=== PATIENT | female | born 1960 | race Caucasian/White ===

== ENCOUNTER 2018-03-28 07:06 | Day surgery (SDC) | payer BC ==
[2018-03-26 14:02] VITALS: BMI 27.5
[~2018-03-28 07:06] MED LIST: Famotidine/PF 20 mg/2ml Vial ONE; Fentanyl 100 MCG/2 ML VIAL ONE
[2018-03-28] MEDS ORDERED: CEFAZOLIN 2 GM/50 ML BAG ONE (07:38)
[2018-03-28] MEDS ORDERED: Bupivacaine/Epinephrine 0.25% 30 ML VIAL ONE (07:39)
[2018-03-28] MEDS ORDERED: Iothalamate Meglumine 60% 50 ML VIAL FS ONE (07:41)
[2018-03-28] MEDS ORDERED: Midazolam HCl 2 mg/2 ml Vial ONE (07:58)
[2018-03-28] MEDS ORDERED: Fentanyl 100 MCG/2 ML VIAL ONE (10:09)
--- NOTE | 2018-03-28 11:04 | RAD ---
CHOLANGIOGRAM IN SURGERY: Comparison: None. History: Cholelithiasis. FINDINGS/IMPRESSION: Multiple limited intraoperative fluoroscopic views from a cholangiogram in surgery were submitted for interpretation. Contrast was seen within the common bile duct, cystic duct, and intrahepatic biliary tree as well the duodenum. The initial images shows no obvious filling defect but a prominent common bile duct. Free spillage is seen into the duodenum on the second image. The third image shows no con trast in the mid portion of the common bile duct, but this does not appear to have the appearance of a calcification. POS: EAMON
[2018-03-28] MEDS ORDERED: HYDROcodone/Acetaminophen 5/325 mg Tablet ONE (12:10)
[2018-03-28] MEDS ORDERED: PROPOFOL 200 MG/20 ML VIAL ONE (17:35)
[2018-03-28] MEDS ORDERED: Ketorolac Tromethamine 30 MG/ML VIAL ONE (17:35)
[2018-03-28] MEDS ORDERED: Lidocaine 1% PF 5 ML VIAL ONE (17:35)
[2018-03-28] MEDS ORDERED: Labetalol HCl 100 MG/20 ML VIAL ONE (17:35)
[2018-03-28] MEDS ORDERED: Dexamethasone 20 MG/5 ML VIAL ONE (17:35)
[2018-03-28] MEDS ORDERED: Ondansetron PF 4 MG/2 ML Vial ONE (17:35)
[2018-03-28] MEDS ORDERED: Glycopyrrolate 0.2 MG/ML 5 ML SYRINGE ONE (17:35)
--- NOTE | 2018-03-30 17:41 | PDOC.OP ---
Operative Note - Operative Note Operative Note: PROCEDURE: Laparoscopic cholecystectomy with intraoperative cholangiogram SURGEON: Tori Velasquez M.D. DATE OF PROCEDURE: 03/28/2018 PREOPERATIVE DIAGNOSIS: Cholelithiasis and cholecystitis, possible choledocholithiasis: POSTOPERATIVE DIAGNOSIS: Cholelithiasis and cholecystitis HISTORY: Patient recently diagnosed with cholelithiasis. Laparoscopic cholecystectomy was recommended, with cholangiogram due to mildly elevated LFTs and transiently elevated lipase. FINDINGS: Stone in cystic duct extruded. Possible lucency and distal common bile duct on initial cholangiogram but no lucency seen on repeat cholangiogram after glucagon and flushing. PROCEDURE IN DETAIL: After informed consent was obtained and appropriate preoperative antibiotics were administered, the patient was taken to the operating room and placed in the supine position and general endotracheal anesthesia was administered. The stomach was decompressed with an OG tube and the abdomen was prepped and draped in standard sterile fashion. Local anesthesia was infused to the skin and subcutaneous tissues at the umbilical level. A transverse skin incision was made. The fascia was elevated and a Veress needle was placed into the abdominal cavity without difficulty. Opening pressure was less than 5 and carbon dioxide gas easily insufflated to an intra- abdominal pressure of 15, which the patient tolerated well. The Veress needle was withdrawn and a [employer] port advanced under direct vision. The abdominal cavity was carefully examined. There was no evidence of Veress needle or of trocar injury. Local anesthesia was infused to the skin and subcutaneous tissues at the epigastric, right upper quadrant, and right lateral abdominal sites and trocars were placed under direct vision of the laparoscope. The fundus of the gallbladder was grasped and retracted superiorly. The infundibulum was grasped and retracted laterally. The serosa was stripped inferiorly at the level of the neck of the gallbladder exposing the cystic duct and artery which were traced clearly to their insertion in the gallbladder. These were dissected free circumferentially and the cystic duct was clipped at the level of the neck of the gallbladder. The cystic artery was clipped but not divided. An incision was made in the cystic duct inferior to the clip and the cystic duct was palpated with one small stone extruded from the cystic duct. Clear bile was seen to flow from the cystic duct incision. A cholangiogram catheter was introduced and placed into the cystic duct and secured with a clip. A cholangiogram was obtained which showed an adequate length of cystic duct. There was normal filling of the common bile duct with free flow of contrast into the duodenum but a possible lucency in the distal common bile duct. There was normal retrograde flow into the common hepatic duct beyond the level of the bifurcation without filling defects. Glucagon was administered by Dr. was flushed. A repeat cholangiogram was taken with careful attention paid to the distal common bile duct and no residual lucency was seen. The cholangiogram catheter was removed and the cystic duct clipped below the incision in the cystic duct. The cystic duct was divided between these clips and the previously placed clip. The cystic artery was clipped and divided between the previously placed clips. The gallbladder was then dissected free of the gallbladder bed using hook electrocautery. Prior to complete removal of the gallbladder from the gallbladder bed, the area of the cystic duct and artery stumps was examined. The clips were in good position completely across these structures and there was no bleeding and no leakage of bile. The gallbladder was then placed into an EndoCatch bag and drawn out through the epigastric incision. The epigastric trocar was replaced and the operative site easily irrigated to clear. There was no significant bleeding or spillage of bile. The epigastric trocar was removed and the fascia closed under direct laparoscopic vision with a 0 Vicryl suture on a GraNee needle in a figure-of- eight manner with excellent technical result. The right upper quadrant and right lateral abdominal trocars were removed and hemostasis verified. Carbon dioxide gas was allowed to desufflate through the umbilical trocar which was then removed. The skin incisions were closed with 4-0 subcuticular Monocryl sutures and Dermabond dressings were placed. The patient was extubated and taken to the recovery room in good condition. There were no complications. ESTIMATED BLOOD LOSS: Minimal. SPECIMEN : Gallbladder and contents.
== END 2018-03-28 12:38 | disposition home or self-care (01) ==
LOC: SDC 07:06
PROVIDERS: ATTEND Surgery
PROC: 0FT44ZZ Resection of Gallbladder, Percutaneous Endoscopic Approach (ICD-10-PCS; principal; 2018-03-28)
PROC: BF121ZZ Fluoroscopy of Gallbladder using Low Osmolar Contrast (ICD-10-PCS; principal; 2018-03-28)
DX: K80.10 Calculus of gallbladder with chronic cholecystitis without obstruction (principal); E11.9 Type 2 diabetes mellitus without complications; Z88.6 Allergy status to analgesic agent; Z79.899 Other long term (current) drug therapy; Z87.891 Personal history of nicotine dependence
CPT/HCPCS: 47532; 88304; 96374; J0131; J1100; J1610; J1885; J2001; J2250; J2405; J2704; J3010; Q9961; S0028

== ENCOUNTER 2018-03-31 17:31 | Observation (INO) | payer BC ==
[2018-03-31 18:07] LABS: #Basophils 0.1 thou/uL (0.0-0.2); #Lymphocytes 4.2 thou/uL (1.20-3.40); #Monocytes 0.8 thou/uL (0.11-0.59); #Neutrophils 6.1 thou/uL (1.40-6.50); %Basophils 0.7 % (0.0-1.0); %Eosinophils 0.2 % (0.0-10.0); %Lymphocytes 37.3 % (21.0-51.0); %Monocytes 7.3 % (0.0-10.0); %Neutrophils 54.5 % (42.0-75.0); Hemoglobin 14.8 g/dL (12.0-16.0); Mean Corpuscular HGB CONC 32.1 g/dL (32.0-36.0); Mean Corpuscular Hemoglobin 29.9 pg (27.0-31.0); Mean Platelet Volume 6.8 fL (7.4-10.4); Platelet Count 316 thou/uL (130-400); RBC Distribution Width 12.1 % (11.5-14.5); Red Blood Cell (RBC) Count 4.96 mill/uL (4.20-5.40); White Blood Cell (WBC) Count 11.2 thou/uL (4.8-10.8)
[2018-03-31] MEDS ORDERED: Morphine 4 MG/ML VIAL ONE ×2 (18:10→20:45)
[2018-03-31] MEDS ORDERED: Ondansetron PF 4 MG/2 ML Vial ONE (18:10)
[2018-03-31 18:30] LABS: ALT (SGPT) 156 U/L (8-55); AST (SGOT) 41 U/L (5-34); Albumin 4.2 g/dL (3.5-5.0); Alkaline Phosphatase 130 U/L (40-150); Anion Gap 16 mmol/L (10-20); BUN (Urea Nitrogen) 22 mg/dL (9.8-20.1); Bilirubin, Total 0.5 mg/dL (0.2-1.2); Calc. Creatinine Clearance 0 mL/min (70-130); Carbon Dioxide 30 mmol/L (22-29); Chloride 98 mmol/L (98-107); Estimated GFR-MDRD 60; Globulin 3.3 g/dL (2.4-3.5); Glucose 142 mg/dL (70-105); Lipase 68 U/L (8-78); Potassium 4.1 mmol/L (3.5-5.1); Protein, Total 7.5 g/dL (6.0-8.3); Sodium 140 mmol/L (136-145)
[2018-03-31 19:24] LABS: Bilirubin Negative (Negative); Blood, Urine Negative (Negative); Clarity CLOUDY (Clear); Glucose, Urine (Dipstick) Negative (Negative); Leukocyte Negative (Negative); Nitrite Negative (Negative); Protein, Urine (Dipstick) Negative (Neg-Trace); Specific Gravity, Urine 1.014 (1.002-1.036); Urobilinogen 0.2 mg/dL (0.2-1.0)
--- NOTE | 2018-03-31 20:34 | ULT ---
RIGHT UPPER QUADRANT ULTRASOUND: 03/31/18 HISTORY: Abdominal pain, status post cholecystectomy. Multiple longitudinal and transverse images of the right upper quadrant of the abdomen is obtained us ing a multihertz curvilinear transducer. Real time images are obtained. The liver is unremarkable. No evidence of hepatic parenchymal lesions seen. The common bile duct is a bnormally dilated measuring approximately 1.1 cm. This may represent common bile dilatation. Consider the patient's recent cholecystectomy, I am concerned about obstructing common bile duct. The gallbladder is not visualized. No evidence of intrahepatic biliary dilatation is seen. No significant amount of free intraperitoneal fluid seen. The visualized portions of the pancreas is unremarkable. The right kidney is unremarkable with no evidence of masses or lesions. IMPRESSION: Abnormally dilated common bile duct. Common bile duct obstruction cannot be excluded. POS: EAMON
[2018-03-31] MEDS: Dextrose 5 % And 0.9 % NaCl 1,000 ML IV SCH (22:41)
[2018-03-31] MEDS: Morphine 2 MG/ML SYRINGE SLOW IVP PRN (22:47)
[2018-04-01] MEDS: Morphine 2 MG/ML SYRINGE SLOW IVP PRN ×4 (00:33→07:22)
[2018-04-01] MEDS: Dextrose 5 % And 0.9 % NaCl 1,000 ML IV SCH (07:48)
[2018-04-01] MEDS ORDERED: Morphine 2 MG/ML SYRINGE SLOW IVP PRN ×2 (11:23→12:15)
--- NOTE | 2018-04-01 13:04 | NM ---
HEPATOBILIARY SCAN: HISTORY: Status post cholecystectomy on 03/28/2018. Right upper quadrant abdominal pain. RADIOPHARMACEUTICAL: 5.5 mCi Technetium 99m-mebrofenin is injected intravenously. FINDINGS: There is good tracer extraction of the liver with prompt excretion into the biliary tract and small b owel loops. No tracer extravasation is seen on the initial or 2-hour delayed images. IMPRESSION: No evidence of biliary obstruction or leak. POS: EAMON
--- NOTE | 2018-04-01 19:35 | CON ---
GI INPATIENT CONSULTATION NOTE DATE OF CONSULTATION: 04/01/2018 REQUESTING PHYSICIAN: Randolph Arora M.D. REASON FOR CONSULTATION: Choledocholithiasis. HISTORY OF PRESENT ILLNESS: Joseluis Castillo is a very pleasant 57-year-old woman who underwent laparosc opic cholecystectomy 5 days ago on March 28, 2018. The procedure went well. Intraoperative cholan giogram was performed at that time which was initially positive but after flushing out the bile duct, it was felt that any remaining stones probably passed. The patient did well after the procedure and went home essentially asymptomatic. Her incisions are healing well; however, yesterday she had a ramirez dden onset of epigastric pain and nausea which is very similar to the pains that she had been having in the past. She presented to the emergency department and again was found to have some mild elevati on in transaminases and an abdominal ultrasound demonstrated her common bile duct is dilated to 1.1 c m. She did have a HIDA scan which was negative, though this is not the most sensitive for small bile duct stones. Her pain level right now is about a constant 4/10. It has improved with morphine. 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 OUTPATIENT MEDICATIONS: Cyclosporine, amitriptyline, Protonix once daily, prednisone. ALLERGIES: ASPIRIN. SOCIAL HISTORY: Social alcohol use. She is a former smoker. FAMILY HISTORY: Noncontributory. PHYSICAL EXAMINATION: VITAL SIGNS: Temperature 98.9, pulse 89, blood pressure 114/75, 97% oxygen saturation on room air. GENERAL: No acute distress. HEART: Regular rate and rhythm. LUNGS: Clear to auscultation bilaterally. ABDOMEN: Bowel sounds are present but hypoactive, soft, some tenderness to palpation in the epigastr ium. No guarding or rebound tenderness. Incisions are healing well. EXTREMITIES: No peripheral edema. VESSELS: Radial pulses 2+ bilaterally. NEUROLOGICAL: Cranial nerves II-XII intact bilaterally. No focal deficits. SKIN: No jaundice, no rashes were palpable. EYES: No scleral icterus. Extraocular movements intact. ENT: Mucous membranes moist, no oral lesions. LYMPH: No submandibular, supraclavicular lymphadenopathy. THYROID: Nontender to palpation. LABORATORY STUDIES: WBC 11.2, hemoglobin 14.8, platelets 316. Sodium 140, potassium 4.1, BUN 22, cr eatinine 0.96. Lactic acid 1.7, calcium 10.0, alkaline phosphatase 130, AST 41, ALT 156, total bilir ubin 0.5, lipase 68. IMAGING STUDIES: Abdominal ultrasound shows normal appearing liver, absent gallbladder, but common b ile duct dilated to 1.1 cm. HIDA scan is negative. ASSESSMENT AND PLAN: 1. Upper abdominal pain. 2. Biliary dilation. 3. Probable choledocholithiasis. The patient has common bile duct dilation to a degree that is grea ter than expected for having had such a recent cholecystectomy. Combining this with the continued mi ld increase in transaminases and initially positive IOC on her recent cholecystectomy, I have a high suspicion for choledocholithiasis. We will plan for ERCP tomorrow with likely biliary sphincterotomy and stone extraction. I discussed this at length with the patient. We discussed the potential risk s of the procedure including post-ERCP pancreatitis, and she desires to proceed. Further recommendations following ERCP tomorrow morning. Thank you for the consultation. Please call any time with questions or concerns.
[2018-04-01] MEDS: Acetaminophen 1,000 MG in Premix Bag 1 BAG IVPB PRN (21:00)
[2018-04-02] MEDS: Acetaminophen 1,000 MG in Premix Bag 1 BAG IVPB PRN ×2 (03:01→16:56)
--- NOTE | 2018-04-02 07:18 | HP ---
CHIEF COMPLAINT: Severe epigastric pain. HISTORY OF PRESENT ILLNESS: This is a 57-year-old female who underwent a laparoscopic cholecystectom y 4 days ago with intraoperative cholangiogram. Postoperatively, she did well and was discharged unt il last night, had sudden onset of same epigastric pain consistent like her gallbladder pain associat ed with nausea and vomiting. PAST MEDICAL HISTORY: Significant for anxiety, depression, arthritis, hyperlipidemia, depression, di abetes mellitus, and esophageal reflux. PAST SURGICAL HISTORY: Shoulder surgery in 1987. She has had a knee arthroscopy, she has had sleeve gastrectomy in [address] Song and cervical fusion. MEDICATIONS: Amitriptyline, Protonix, prednisone, Zofran. ALLERGIES: She has allergies to ASPIRIN. SOCIAL HISTORY: She is . Occasional alcohol. FAMILY HISTORY: Diabetes. PHYSICAL EXAMINATION: VITAL SIGNS: Her temperature is 98.9, pulse 89, blood pressure 114/75. GENERAL: , in some pain. HEENT: No jaundice. LUNGS: Clear. HEART: Regular rate and rhythm. ABDOMEN: Soft. She is tender in the midepigastrium and right upper quadrant, no palpable masses or hernias. EXTREMITIES: Unremarkable. LABORATORY DATA AND IMAGING DATA: White count 11.2, hemoglobin and hematocrit 14 and 46, platelet co unt 316. Electrolytes, she has an elevated glucose at 142, AST elevated at 41, ALT of 156. Ultrasou nd shows a dilated common bile duct at 1.1 cm. She had a HIDA scan today that shows duodenum w ithout evidence of obstruction. ASSESSMENT: Concerning for possible common duct stone that is partially obstructing. PLAN: GI consult for possible ERCP.
[2018-04-02] MEDS ORDERED: Iothalamate Meglumine 60% 50 ML VIAL FS ONE (07:21)
[2018-04-02] MEDS ORDERED: Indomethacin 50 MG SUPP ONE (07:21)
[2018-04-02] MEDS ORDERED: Fentanyl 100 MCG/2 ML VIAL ONE (07:30)
[2018-04-02] MEDS ORDERED: Ondansetron HCl/PF 4 MG/2 ML Vial IVP PRN (09:00)
[2018-04-02] MEDS ORDERED: Ketorolac Tromethamine 30 MG/ML VIAL IVP PRN (09:00)
--- NOTE | 2018-04-02 09:59 | OP ---
DATE OF PROCEDURE: 04/02/2018 GI ENDOSCOPY NOTE SURGEON: Celso Kaba M.D. [employer] SURGEON: None. PROCEDURE: Endoscopic retrograde cholangiopancreatography with biliary sphincterotomy and balloon ex traction of biliary sludge. INDICATIONS: 1. Upper abdominal pain. 2. Biliary dilation to 1.1 cm. 3. Elevated liver function tests. 4. Recent cholecystectomy 6 days ago, high probability for choledocholithiasis. MEDICATIONS: 1. See anesthesia record. 2. Indomethacin 100 mg per rectum. FINDINGS: After discussion of the risks, benefits, and alternatives of the procedure, informed conse nt was obtained and witnessed. Pre-endoscopic cardiopulmonary examination was satisfactory. Timeout was performed before sedation was achieved. Sedation was achieved with anesthesia assistance in the endoscopy unit. The patient was placed in a semi-prone position on the fluoroscopy table. A Pentax adult side-viewin g duodenoscope was advanced through the mouth beyond the esophagus and stomach and into the second po rtion of the duodenum. The ampulla was brought into view with the endoscope in the short position. The ampulla appeared normal, though it was somewhat small. Using a triple-lumen dome tip sphincterot ome and a 0.035 guidewire, we were able to selectively cannulate the common bile duct. The wire was passed up into the left intrahepatic system. Biliary cholangiogram was then performed. The cholangi ogram demonstrated no evidence of intrahepatic biliary dilation. There is mild dilation of the commo n bile duct. No filling of the cystic duct. In the distal common bile duct, there is some vague haz iness, but no discrete filling defect. At this point, a biliary sphincterotomy was performed. The s phincterotome was then exchanged for a 9-12 mm extraction balloon. Several passes were made of the b ile duct with the balloon partially and fully inflated. In this fashion, we extracted a minimal amou nt of biliary sludge, but mostly clear bile. The 12-mm balloon passed easily out of the ampulla. At this point, the working apparatus was completely withdrawn and the endoscope was withdrawn sectionin g out excess air and fluid. Postprocedure fluoroscopic images demonstrated no retroperitoneal or sub diaphragmatic free air. The procedure was complete. The patient tolerated the procedure well. Ther e were no immediate post-procedure complications. IMPRESSION: 1. Mild dilation of the common bile duct. 2. Minimal common bile duct sludge, now status post successful biliary sphincterotomy and sludge ext raction. RECOMMENDATIONS: 1. Clear liquid diet, advance as tolerated. 2. Monitor for potential complications including post-ERCP pancreatitis. Please call back anytime w ith questions or concerns.
[2018-04-02] MEDS ORDERED: Dexamethasone 20 MG/5 ML VIAL ONE (15:18)
[2018-04-02] MEDS ORDERED: Glycopyrrolate 0.2 MG/ML 5 ML SYRINGE ONE (15:18)
[2018-04-02] MEDS ORDERED: Lidocaine 1% PF 5 ML VIAL ONE (15:18)
[2018-04-02] MEDS ORDERED: Ondansetron PF 4 MG/2 ML Vial ONE (15:18)
[2018-04-02] MEDS ORDERED: PROPOFOL 200 MG/20 ML VIAL ONE (15:18)
[2018-04-03 06:19] LABS: ALT (SGPT) 82 U/L (8-55); AST (SGOT) 33 U/L (5-34); Albumin 3.8 g/dL (3.5-5.0); Alkaline Phosphatase 126 U/L (40-150); Anion Gap 13 mmol/L (10-20); BUN (Urea Nitrogen) 15 mg/dL (9.8-20.1); Bilirubin, Total 0.5 mg/dL (0.2-1.2); Calc. Creatinine Clearance 111 mL/min (70-130); Calcium 9.3 mg/dL (7.8-10.44); Carbon Dioxide 24 mmol/L (22-29); Chloride 105 mmol/L (98-107); Estimated GFR-MDRD 76; Globulin 3.2 g/dL (2.4-3.5); Glucose 144 mg/dL (70-105); Lipase 35 U/L (8-78); Sodium 138 mmol/L (136-145)
[2018-04-03 11:55] VITALS: BP 106/67; TEMP 98.1
[2018-04-03 14:19] VITALS: BMI 32.0
== END 2018-04-03 14:56 | disposition home or self-care (01) ==
LOC: ERS 17:31 → SURG A 21:54
PROVIDERS: ADMIT Surgery; ATTEND Surgery
PROC: 0F798ZZ Dilation of Common Bile Duct, Via Natural or Artificial Opening Endoscopic (ICD-10-PCS; principal; 2018-04-02)
DX: K83.8 Other specified diseases of biliary tract (principal); F41.9 Anxiety disorder, unspecified; F32.9 Major depressive disorder, single episode, unspecified; M19.90 Unspecified osteoarthritis, unspecified site; E78.5 Hyperlipidemia, unspecified; E11.9 Type 2 diabetes mellitus without complications; K21.9 Gastro-esophageal reflux disease without esophagitis; Z87.891 Personal history of nicotine dependence; Z79.52 Long term (current) use of systemic steroids; Z79.899 Other long term (current) drug therapy; Z88.8 Allergy status to other drugs, medicaments and biological substances; Z90.3 Acquired absence of stomach [part of]; Z90.49 Acquired absence of other specified parts of digestive tract; Z98.1 Arthrodesis status
CPT/HCPCS: 36415; 76000; 76705; 78226; 80053; 81003; 83605; 83690; 85025; 96361; 96365; 96374; 96375; 96376; A9537; G0378; J0131; J1100; J2001; J2270; J2405; J2704; J3010; Q9961

== ENCOUNTER 2018-10-08 12:07 | Outpatient (CLI) | payer BC ==
--- NOTE | 2018-10-08 14:25 | MMO ---
Bilateral MAMMO Bilat Screen [facility]. CLINICAL HISTORY: Patient is 57 years old and is seen for screening. The patient has no family history of breast cancer. The patient has no personal history of cancer. VIEWS: The views performed were: bilateral craniocaudal with tomosynthesis and bilateral mediolateral oblique with tomosynthesis. FILMS COMPARED: The present examination has been compared to prior imaging studies performed at [facility] on 10/01/2015 and 10/14/2016. MAMMOGRAM FINDINGS: The breasts are heterogeneously dense, which could obscure a lesion on mammography. There are benign appearing calcifications seen in both breasts. There are no suspicious masses, suspicious calcifications, or new areas of architectural distortion. IMPRESSION: THERE IS NO MAMMOGRAPHIC EVIDENCE OF MALIGNANCY. A ROUTINE FOLLOW-UP MAMMOGRAM IN 1 YEAR IS RECOMMENDED. THE RESULTS OF THIS EXAM WERE SENT TO THE PATIENT. ACR BI-RADS Category 2 - Benign finding MAMMOGRAPHY NOTE: 1. A negative mammogram report should not delay a biopsy if a dominant of clinically suspicious mass is present. 2. Approximately 10% to 15% of breast cancers are not detected by mammography. 3. Adenosis and dense breasts may obscure an underlying neoplasm.
== END 2018-10-08 12:08 | disposition home or self-care (01) ==
LOC: BICMAMMO 12:07
PROVIDERS: ATTEND Internal Medicine
DX: Z12.31 Encounter for screening mammogram for malignant neoplasm of breast (principal)
CPT/HCPCS: 77063; 77067

== ENCOUNTER 2019-12-13 10:17 | Outpatient (CLI) | payer BC ==
--- NOTE | 2019-12-13 10:49 | MMO ---
Bilateral MAMMO Bilat Screen [facility]. CLINICAL HISTORY: Patient is 58 years old and is seen for screening. The patient has no family history of breast cancer. The patient has no personal history of cancer. VIEWS: The views performed were: bilateral craniocaudal with tomosynthesis and bilateral mediolateral oblique with tomosynthesis. FILMS COMPARED: The present examination has been compared to prior imaging studies performed at [facility] on 10/01/2015, 10/14/2016 and 10/08/2018. This study has been interpreted with the assistance of computer-aided detection. MAMMOGRAM FINDINGS: The breasts are heterogeneously dense, which could obscure a lesion on mammography. There is an asymmetry seen in the anterior inner region of the right breast. In the left breast, there are no suspicious masses, calcifications or areas of architectural distortion. IMPRESSION: ASYMMETRY IN THE RIGHT BREAST REQUIRES ADDITIONAL EVALUATION. RECOMMEND DIAGNOSTIC MAMMOGRAM. ULTRASOUND MAY ALSO PROVE USEFUL AT RECALL. THE RESULTS OF THIS EXAM WERE SENT TO THE PATIENT. ACR BI-RADS Category 0 - Incomplete: Need additional imaging evaluation. [facility] will notify the patient of the need for additional imaging services. MAMMOGRAPHY NOTE: 1. A negative mammogram report should not delay a biopsy if a dominant of clinically suspicious mass is present. 2. Approximately 10% to 15% of breast cancers are not detected by mammography. 3. Adenosis and dense breasts may obscure an underlying neoplasm. Reported by: KAVEH MURRAY MD Electonically Signed: [id number]
== END 2019-12-13 10:18 | disposition home or self-care (01) ==
LOC: BICMAMMO 10:17
PROVIDERS: ATTEND Internal Medicine
DX: Z12.31 Encounter for screening mammogram for malignant neoplasm of breast (principal); N64.89 Other specified disorders of breast
CPT/HCPCS: 77063; 77067

== ENCOUNTER 2019-12-16 10:01 | Outpatient (CLI) | payer BC ==
--- NOTE | 2019-12-16 10:37 | ULT ---
EXAM: US Breast Limited Rt PROVIDED CLINICAL HISTORY: Abnormal mammogram COMPARISON: Concurrently performed diagnostic mammogram FINDINGS: Limited sonographic interrogation of the inner right breast was performed in the region of mammograph ic concern. There is an angular hypoechoic mass with posterior shadowing at the 2:00 position of the right breast measuring about 1 cm, corresponding with the mammogram finding. Limited sonographic interrogation of the right axilla demonstrates no evidence for lymph node enlargement. IMPRESSION: 1 cm right breast mass. Ultrasound-guided biopsy is recommended. Results and recommendations discusse d with the patient and questions answered. BI-RADS 4 -- suspicious abnormality, biopsy recommended
--- NOTE | 2019-12-16 10:38 | MMO ---
Right Breast MAMMO Unilat Diag DDI RT+JOHN. CLINICAL HISTORY: Patient is 58 years old and is seen for additional evaluation requested at current screening. The patient has no family history of breast cancer. The patient has no personal history of cancer. VIEWS: The views performed were: right craniocaudal spot compression with tomosynthesis and right mediolateral with tomosynthesis. FILMS COMPARED: The present examination has been compared to prior imaging studies performed at [facility] on 10/14/2016, 10/08/2018, 12/13/2019 and 12/16/2019. This study has been interpreted with the assistance of computer-aided detection. MAMMOGRAM FINDINGS: The breast is heterogeneously dense, which could obscure a lesion on mammography. There is an irregular mass measuring 12 millimeters with obscured margins seen in the anterior region of the right breast at 2 o'clock. Ultrasound of this region demonstrates a suspicious hypoechoic mass. IMPRESSION: MASS IN THE RIGHT BREAST IS SUSPICIOUS. BIOPSY IS RECOMMENDED. RESULTS AND RECOMMENDATIONS DISCUSSED WITH THE PATIENT AND QUESTIONS ANSWERED. THE RESULTS OF THIS EXAM WERE SENT TO THE PATIENT. ACR BI-RADS Category 4 - Suspicious abnormality - biopsy should be considered MAMMOGRAPHY NOTE: 1. A negative mammogram report should not delay a biopsy if a dominant of clinically suspicious mass is present. 2. Approximately 10% to 15% of breast cancers are not detected by mammography. 3. Adenosis and dense breasts may obscure an underlying neoplasm. Reported by: KAVEH MURRAY MD Electonically Signed: [id number]
== END 2019-12-16 10:02 | disposition home or self-care (01) ==
LOC: BICMAMMO 10:01
PROVIDERS: ATTEND Internal Medicine
DX: R92.1 Mammographic calcification found on diagnostic imaging of breast (principal); N63.12 Unspecified lump in the right breast, upper inner quadrant
CPT/HCPCS: G0279

== ENCOUNTER → 2019-12-17 | Day surgery (SDC) | payer BC ==
--- NOTE | 2019-12-17 13:38 | ULT ---
EXAM: Ultrasound-guided right breast biopsy PROVIDED CLINICAL HISTORY: Right breast mass COMPARISON: Ultrasound 12/16/2019 FINDINGS: Limited sonographic interrogation was performed of the right breast, with localization of the previou sly described mass. Informed consent was obtained from the patient. The skin overlying this region was prepped and draped in the usual sterile manner and the soft tissues anesthetized with 1% buffered lidocaine. A small skin incision was made. Continuous ultrasound guidance was utilized to obtain 4 core samples of the mass. Subsequently, continuous ultrasound guidance was utilized to place a biopsy site marker. [place] were withdrawn and hemostasis achieved. No immediate complications. IMPRESSION: Technically successful right breast biopsy. Please correlate with histology results to follow.
--- NOTE | 2019-12-17 13:41 | MMO ---
FILMS COMPARED: The present examination has been compared to prior imaging studies performed at [facility] on 10/08/2018, 12/13/2019 and 12/16/2019. MAMMOGRAM FINDINGS: A biopsy clip is seen in the right breast. IMPRESSION: FINDING IN THE RIGHT BREAST IS CONFIRMED UTILIZING POST PROCEDURE MAMMOGRAM. Reported by: KAVEH MURRAY MD Electonically Signed: [id number]
== END ==
LOC: BICULT 12:47
PROVIDERS: ATTEND Internal Medicine
PROC: 0H9T3ZX Drainage of Right Breast, Percutaneous Approach, Diagnostic (ICD-10-PCS; principal; 2019-12-17)
DX: C50.211 Malignant neoplasm of upper-inner quadrant of right female breast (principal); Z88.6 Allergy status to analgesic agent
CPT/HCPCS: 19083; 88305

== ENCOUNTER 2020-01-17 07:22 | Outpatient (CLI) | payer BC, OTHER ==
[2020-01-17 10:25] LABS: #Eosinphils 0.2 thou/uL (0.0-0.7); #Lymphocytes 2.2 thou/uL (1.20-3.40); #Monocytes 0.6 thou/uL (0.11-0.59); #Neutrophils 3.1 thou/uL (1.40-6.50); %Basophils 0.7 % (0.0-1.0); %Eosinophils 2.5 % (0.0-10.0); %Lymphocytes 35.7 % (21.0-51.0); %Monocytes 10.4 % (0.0-10.0); %Neutrophils 50.7 % (42.0-75.0); Hemoglobin 13.8 g/dL (12.0-16.0); Mean Corpuscular Hemoglobin 30.5 pg (27.0-31.0); Mean Corpuscular Volume 89.6 fL (78.0-98.0); Platelet Count 251 thou/uL (130-400); RBC Distribution Width 11.8 % (11.5-14.5); Red Blood Cell (RBC) Count 4.53 mill/uL (4.20-5.40); White Blood Cell (WBC) Count 6.1 thou/uL (4.8-10.8)
[2020-01-17 12:56] LABS: Anion Gap 19 mmol/L (10-20); BUN (Urea Nitrogen) 26 mg/dL (9.8-20.1); Calc. Creatinine Clearance 0 mL/min (70-130); Calcium 9.9 mg/dL (7.8-10.44); Carbon Dioxide 20 mmol/L (22-29); Chloride 106 mmol/L (98-107); Estimated GFR-MDRD 63; Glucose 141 mg/dL (70-105); Potassium 4.8 mmol/L (3.5-5.1); Sodium 140 mmol/L (136-145)
--- NOTE | 2020-01-17 16:45 | EKG ---
Test Reason : Blood Pressure : / mmHG Vent. Rate : 056 BPM Atrial Rate : 056 BPM P-R Int : 174 ms QRS Dur : 102 ms QT Int : 420 ms P-R-T Axes : 063 077 061 degrees QTc Int : 405 ms Sinus bradycardia Otherwise normal ECG No previous ECGs available Confirmed by DR. Hernán MEZA ([id number]) on 01/17/2020 4:45:39 PM Referred By: IKE Confirmed By:DR. Hernán MEZA
[2020-01-17 17:04] LABS: SARS-CoV-2 MS2 Positive; SARS-CoV-2 N Gene Negative; SARS-CoV-2 S Gene Negative; SARS-CoV-2 by NAA Not Detected (NotDetected); SARS-CoV-2 orf1ab Negative
== END 2020-01-17 07:23 | disposition home or self-care (01) ==
LOC: LABBT 07:22
PROVIDERS: ATTEND Surgery
DX: Z01.818 Encounter for other preprocedural examination (principal); Z20.828 Contact with and (suspected) exposure to other viral communicable diseases; C50.919 Malignant neoplasm of unspecified site of unspecified female breast
CPT/HCPCS: 80048; 85025; 87635; 93005; 93010; U0003

== ENCOUNTER 2020-01-22 08:56 | Day surgery (SDC) | payer BC ==
[2020-01-17 09:20] VITALS: BMI 28.3
[2020-01-22] MEDS ORDERED: Rocuronium Bromide 10 MG/ML (10ML VIAL) ONE (10:29)
[2020-01-22] MEDS ORDERED: PROPOFOL 200 MG/20 ML VIAL ONE (10:29)
[2020-01-22] MEDS ORDERED: PHENYLEPHRINE-NS 100 MCG/ML 10 ML SYRINGE ONE (10:29)
[2020-01-22] MEDS ORDERED: Lidocaine 1% PF 5 ML VIAL ONE (10:29)
[2020-01-22] MEDS ORDERED: Ondansetron PF 4 MG/2 ML Vial ONE (10:29)
--- NOTE | 2020-01-22 11:10 | NM ---
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 TECHNIQUE: Signed informed consent obtained. Alcohol swabbing four-quadrant right periareolar distribution. Usin g 30-gauge needle, buffered lidocaine was applied to those 4 quadrants. Next, using 4 separate 30-gauge needles in 4 separate tuberculin syringes, a total of 0.4 mCi of technetium 99m sulfur collo id was injected into those same 4 periareolar quadrants immediate anterior and lateral scintigraphic images obtained of the chest. Patient tolerated procedure well. No complications. FINDINGS: There is uptake in sentinel right axillary lymph node. There multiple additional foci of uptake in additional right axillary lymph nodes and internal mammar y lymph nodes IMPRESSION: Successful right breast lymphoscintigraphy
[2020-01-22] MEDS ORDERED: Acetaminophen 500 MG TAB ONE (11:36)
[2020-01-22] MEDS ORDERED: Ketorolac Tromethamine 30 MG/ML VIAL ONE (11:36)
[2020-01-22] MEDS ORDERED: Fentanyl 100 MCG/2 ML VIAL ONE (11:42)
[2020-01-22] MEDS ORDERED: Scopolamine 1.5 mg/72 hour Patch ONE (12:09)
[2020-01-22] MEDS ORDERED: Bupivacaine 0.25% HCL 30 ML VIAL ONE (12:20)
[2020-01-22] MEDS ORDERED: Lidocaine 1% w/Epinephrine 1:100K 20 ML VIAL ONE (12:20)
[2020-01-22] MEDS ORDERED: Isosulfan Blue 50 MG/5 ML VIAL ONE (12:20)
[2020-01-22] MEDS ORDERED: Famotidine/PF 20 mg/2ml Vial ONE (12:42)
[2020-01-22] MEDS ORDERED: SUGAMMADEX SODIUM 500 MG/5 ML VIAL ONE (12:42)
[2020-01-22] MEDS ORDERED: SUGAMMADEX SODIUM 200 MG/2 ML VIAL ONE (12:43)
[2020-01-22] MEDS ORDERED: Midazolam HCl 2 mg/2 ml Vial ONE (12:43)
--- NOTE | 2020-01-25 18:34 | PDOC.OP ---
Operative Note - Operative Note Operative Note: PROCEDURE: Right breast lumpectomy and sentinel lymph node biopsy SURGEON: Tori Velasquez M.D. DATE: 01/22/2020 PREOPERATIVE DIAGNOSIS: Right breast cancer POSTOPERATIVE DIAGNOSIS: Right breast cancer HISTORY: Patient with right breast cancer who has opted for breast conservation therapy. She has a small mass and clinically negative axilla. FINDINGS: Mass and clip present in lumpectomy specimen. 6 sentinel lymph nodes identified. PROCEDURE IN DETAIL: After informed consent was obtained the patient was taken to the operating room and placed in the supine position. General anesthesia was administered and the breast was prepped with alcohol and lymphazurin injected subdermally behind the right nipple. The breast was massaged for 5 minutes, and then the patient was positioned, prepped and draped. Local anesthesia was infused to the lower edge of the hairbearing skin of the axilla. The skin was incised and dissection carried down to the area of highest activity by neoprobe. 6 lymph nodes with increased activity were identified and excised and target counts performed. The first one had a target count of 3056 and was blue in color. The second one had a target count of 146 and was not blue.the third had a count of 313 and was slightly blue. [place] lymph node #4 5 and 6 had target counts of 120, 145, and 225 respectively. All the sentinel lymph nodes were normal in size and soft to palpation. The axilla was examined and palpated and no other palpable abnormal nodes nor areas of increased activity were found. The wound was irrigated and hemostasis verified. Additional local anesthesia was infused for postoperative pain control and the subcutaneous tissues were reapproximated with 3-0 Monocryl suture and the skin closed with 4- 0 Monocryl suture. Attention was then turned to the lumpectomy. The mass in the right medial breast was identified using a sterile ultrasound probe.. The margins of the mass were marked on the overlying skin and a periareolar incision made. Flaps were raised in all directions and dissection was then carried down circumferentially to below the level of the mass. The tissues deep to the mass were then transected and the specimen was removed and marked for orientation with a long lateral, short superior, and looped superficial suture. It was sent for specimen mammogram which showed presence of the mass and clip within the specimen. The wound was irrigated and hemostasis obtained using Bovie electrocautery. Additional local anesthesia was infused circumferentially for postoperative pain control. The subcutaneous tissues were reapproximated with a running 3-0 Monocryl suture and additional local anesthesia infused into the biopsy cavity. The skin was then closed with a running 4-0 subcuticular Monocryl suture. Dermabond dressings were placed to both incisions and once this was dry, fluffs compression dressings were placed and secured to the skin with tape. The patient was extubated and taken to the recovery room in good condition. Estimated blood loss was minimal. There were no complications. Specimens are sentinel lymph nodes x6 and right breast mass.
== END 2020-01-22 17:25 | disposition home or self-care (01) ==
LOC: SDC 08:56
PROVIDERS: ATTEND Surgery
PROC: 07B50ZX Excision of Right Axillary Lymphatic, Open Approach, Diagnostic (ICD-10-PCS; principal; 2020-01-22)
PROC: 0HBT0ZZ Excision of Right Breast, Open Approach (ICD-10-PCS; principal; 2020-01-22)
DX: C50.211 Malignant neoplasm of upper-inner quadrant of right female breast (principal); F41.9 Anxiety disorder, unspecified; M19.90 Unspecified osteoarthritis, unspecified site; E78.00 Pure hypercholesterolemia, unspecified; F32.9 Major depressive disorder, single episode, unspecified; E11.9 Type 2 diabetes mellitus without complications; K21.9 Gastro-esophageal reflux disease without esophagitis; Z87.891 Personal history of nicotine dependence; Z17.0 Estrogen receptor positive status [ER+]; Z79.899 Other long term (current) drug therapy; Z88.6 Allergy status to analgesic agent
CPT/HCPCS: 76098; 78195; 88307; 88341; 88342; A9541; J0690; J1885; J2250; J2405; J2704; J3010; Q9968; S0020; S0028

== ENCOUNTER 2020-03-25 07:52 | Outpatient (CLI) | payer BC ==
--- NOTE | 2020-03-25 08:22 | BD ---
EXAM: DEXA bone density examination HISTORY: 59-year-old postmenopausal female for screening COMPARISON: None FINDINGS: L1--bone mineral density 0.850 g/sq cm; T score -1.3 L2--bone mineral density 0.923 g/sq cm; T score -1.0 L3--bone mineral density 0.922 g/sq cm; T score -1.5 L4--bone mineral density 0.850 g/sq cm; T score -1.9 Total L1-L4--bone mineral density 0.885 g/sq cm; T score -1.5 Left femoral neck--bone mineral density0.642; T score -1.9 Total proximal left femur--bone mineral density 0.899; T score -0.4 IMPRESSION: Osteopenia. This patient has a 10 year WHO fracture risk of a major osteoporotic fracture of 8.3% and of a hip fracture of 0.9%.
== END 2020-03-25 07:53 | disposition home or self-care (01) ==
LOC: BICMAMMO 07:52
PROVIDERS: ATTEND Internal Medicine Hematology & Oncology
DX: Z13.820 Encounter for screening for osteoporosis (principal); Z78.0 Asymptomatic menopausal state; M85.89 Other specified disorders of bone density and structure, multiple sites
CPT/HCPCS: 77080